=== PATIENT | male | born 1970 | race Caucasian/White ===

== ENCOUNTER 2017-12-10 09:05 | Emergency (ER) | payer OTHER ==
[~2017-12-10] VITALS: Ht 182.9 cm; Wt 83.9 kg
[~2017-12-10 09:05] MED LIST: IBUPROFEN800 MG PO; MOTRIN 600 MG600 MG PO; ULTRAM(MONOGRAP50 MG PO
--- NOTE | 2017-12-10 09:40 | ED GI/GU/ABDOMINAL COMPLAINT ---
History of Present Illness General Chief Complaint: Nausea, Vomiting, Diarrhea Stated Complaint: +NV, X 12 HRS Source: patient Exam Limitations: no limitations Allergies Coded Allergies: NO KNOWN ALLERGIES (05/15/11) Reconcile Medications Omeprazole 40 MG CAPSULE.DR José CAP PO DAILY reflux Triage Note: PT TO ED WITH C/O NAUSEA SINCE 6PM YESTERDAY AFTER EATING RIBS, VOMITED LAST NIGHT, NOT FURTHER VOMITING TODAY, DENIES DIARRHEA. HX "ULCER IN STOMACH A COUPLE OF YEARS AGO". Triage Nurses Notes Reviewed? yes Onset: Abrupt Duration: day(s): (1) Timing: recent history Quality/Severity: moderate Location: epigastric Radiation: no radiation Activities at Onset: none No Modifying Factors: none HPI: 47-year-old male comes into the emergency room for further evaluation of epigastric discomfort that began last night around 6 PM. Patient reports that he was eating some ribs. Immediately after eating felt nauseous and began to vomit. Hes had some burning upper abdominal pain. He denies any fever. He drinks about 6 beers a day. He's had some withdrawal symptoms before. He reports that since last night he's been having vomiting intermittent bleeding and spitting up mucus. Denies any other associated symptoms. (Vincent BARROW,Hernandez) Vital Signs & Intake/Output Vital Signs & Intake/Output Vital Signs Date Time Temp Pulse Resp B/P B/P Pulse O2 O2 Flow FiO2 Mean Ox Delivery Rate 12/10 1932 99.0 84 18 145/81 95 Room Air 12/10 1430 99.7 85 20 150/90 12/10 1418 99.7 85 20 150/90 98 Room Air 12/10 1230 98.6 70 20 156/86 12/10 1223 98.6 70 20 156/86 99 Room Air 12/10 1030 98.0 69 20 150/80 12 1030 98.0 69 20 150/80 97 Room Air 12/10 0909 7.9 90 18 149/94 98 Room Air Room Air (Alexa VOSS,Castro Siegel) Past History Travel History Traveled to [place] past 21 day No Medical History Any Pertinent Medical History? see below for history Neurological: NONE EENT: NONE Cardiovascular: NONE Respiratory: NONE Gastrointestinal: GERD, peptic ulcer disease Hepatic: NONE Renal: NONE Musculoskeletal: BONE DEGENERATION Psychiatric: NONE Endocrine: NONE Blood Disorders: NONE Cancer(s): NONE OPHTHALMIC PATHOLOGIST/Reproductive: NONE Surgical History Surgical History: non-contributory Psychosocial History What is your primary language Andorran Tobacco Use: Current Daily Use Daily Tobacco Use Amount/Type: => 5 Cigarettes daily ETOH Use: occasional use Illicit Drug Use: denies illicit drug use Family History Hx Contributory? No (Hernandez Robles) Review of Systems Review of Systems Constitutional: Reports: no symptoms. EENTM: Reports: no symptoms. Respiratory: Reports: no symptoms. Cardiovascular: Reports: no symptoms. GI: Reports: see HPI. Genitourinary: Reports: no symptoms. Musculoskeletal: Reports: no symptoms. Skin: Reports: no symptoms. Neurological/Psychological: Reports: no symptoms. Hematologic/Endocrine: Reports: no symptoms. Immunologic/Allergic: Reports: no symptoms. All Other Systems: Reviewed and Negative (Hernandez Robles) Physical Exam Physical Exam General Appearance: well developed/nourished, alert, awake Head: atraumatic Eyes: Bilateral: normal appearance. Ears, Nose, Throat, Mouth: hearing grossly normal, moist mucous membrane Neck: normal inspection Respiratory: no respiratory distress Gastrointestinal: soft, tenderness (epigastric) Back: normal inspection Extremities: normal range of motion Neurologic/Psych: awake, alert, oriented x 3, normal gait Core Measures ACS in differential dx? Yes Sepsis Present: No Sepsis Focused Exam Completed? No (Hernandez Robles) Progress Differential Diagnosis: AMI, biliary colic, gastritis, hepatitis, Alycia-Tayo tear, pancreatitis, peptic ulcer, PUD/GERD, SBO Plan of Care: Orders Procedure Date/time Status CIWA 12/10 1004 Active URINALYSIS 12/10 1004 Complete TROPONIN LEVEL 12/10 0939 Complete PARTIAL THROMBOPLASTIN TIME 12/10 0939 Complete PROTHROMBIN TIME 12/10 0939 Complete LIPASE 12/10 0939 Complete ETHANOL 12/10 0939 Complete COMPREHENSIVE METABOLIC PANEL 12/10 0939 Complete CBC WITHOUT DIFFERENTIAL 12/10 0939 Complete AMYLASE 12/10 0939 Complete EKG 12/10 0939 Active Laboratory Tests 12/10/17 1131: Urine Color YEL, Urine Clarity CLEAR, Urine pH 6.0, Ur Specific Lyman 1.015, Urine Protein NEG, Urine Ketones 15 H, Urine Nitrite NEG, Urine Bilirubin NEG, Urine Urobilinogen 0.2, Ur Leukocyte Esterase NEG, Ur Microscopic EXAM NOT REQUIRED, Urine Hemoglobin NEG, Urine Glucose NEG 12/10/17 1000: Anion Gap 18 H, Estimated GFR > 60, BUN/Creatinine Ratio 13.3, Glucose 88, Calcium 9.5, Total Bilirubin 1.7 H, AST 116 H, ALT 54, Alkaline Phosphatase 105, Troponin I < 0.01, Total Protein 8.4 H, Albumin 4.8, Globulin 3.6, Albumin /Globulin Ratio 1.3, Amylase 82, Lipase 118, PT 14.1 H, INR 1.29 H, APTT 34, CBC w Diff NO MAN DIFF REQ, RBC 4.54 L, MCV 96.6 H, MCH 31.6 H, MCHC 32.7 L, RDW 13.0, MPV 8.4, Gran % 77.9 H, Lymphocytes % 9.9 L, Monocytes % 11.3 H, Eosinophils % 0.5, Basophils % 0.4, Absolute Granulocytes 3.5, Absolute Lymphocytes 0.5 L, Absolute Monocytes 0.5, Absolute Eosinophils 0, Absolute Basophils 0, Serum Alcohol 31.0 Diagnostic Imaging: Viewed by Me: CT Scan. Discussed w/RAD: CT Scan. Radiology Impression: PATIENT: ASIF LUA PRESENT AGE: 47 PATIENT ACCOUNT NO: [id number] : 69 LOCATION: [facility] ORDERING PHYSICIAN: Hernandez BARROW SERVICE DATE: 12/10/17 EXAM TYPE : CAT - CT ABD & PELVIS W IV CONTRAST; CT CHEST W IV CONTRAST EXAMINATION: CT CHEST WITH IV CONTRAST CT ABDOMEN AND PELVIS WITH IV CONTRAST CLINICAL INFORMATION: Epigastric pain and difficulty swallowing. COMPARISON: None TECHNIQUE: Multidetector CT imaging examination of the chest, abdomen and pelvis was performed with intravenous administration of 95 mL Optiray 320. Axial images are displayed at 0.625 mm and 5 mm slice thickness. Coronal and sagittal reformatted images were generated at the technologist's workstation and submitted for review. DLP: 422 mGy-cm FINDINGS: CHEST - LUNGS and PLEURA: Trachea and central airways are widely patent and normal in caliber. Lungs are clear. No pulmonary interstitial infiltrate, consolidation, pleural effusion or pneumothorax. MEDIASTINUM: The heart size is normal. Mild atherosclerotic calcification of the left anterior descending coronary artery. No pericardial effusion. Thoracic aorta and pulmonary arteries are normal in caliber. Although the examination was not performed to specifically evaluate pulmonary arteries, there are no filling defects identified in the central pulmonary vessels. Small- to-moderate sized sliding-type hiatal hernia. No pneumomediastinum. Thyroid gland is unremarkable. LYMPHATICS: No pathologic sized axillary, hilar or mediastinal lymph nodes. CHEST WALL/BONES: Thoracic vertebra have normal height and alignment. Mild dextrocurvature of the thoracic spine. No aggressive osseous lesions within the thorax. ABDOMEN AND PELVIS - HEPATOBILIARY: Liver has normal size and contour. Liver parenchyma is diffusely hypodense compared to the spleen on these portal venous phase images. This suggests presence of diffuse steatosis. Gallbladder is unremarkable. No intrahepatic or extrahepatic bile duct dilatation. PANCREAS: Pancreas enhances homogeneously. No focal lesion, ductal dilatation or peripancreatic edema. SPLEEN: Unremarkable. ADRENAL GLANDS: Unremarkable. KIDNEYS, URETERS, BLADDER: Kidneys are normal in size and enhance symmetrically. No nephrolithiasis, hydronephrosis or perinephric edema. GI TRACT AND PERITONEUM: Loops of bowel are normal in caliber. No evidence of bowel obstruction or constipation. Diverticulosis of sigmoid colon without evidence of diverticulitis. The normal appendix is retrocecal in position. No ascites or pneumoperitoneum. ABDOMINAL WALL: Minimal protrusion of fat into the left inguinal canal. No acute findings in the abdominal wall. VASCULAR: Abdominal aorta is normal in caliber and the celiac trunk, SMA, GELY and renal arteries are widely patent. LYMPH NODES: Normal. PELVIC VISCERA: Prostate gland is grossly unremarkable. No pelvic free fluid. OSSEOUS STRUCTURES: There are pars interarticularis defects of L5 with grade 1 anterolisthesis of L5 on S1. 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 IMPRESSION: 1. Small-to moderate-sized sliding-type hiatal hernia. 2. Diffuse hepatic steatosis - a finding that can be seen in association with alcohol use and/or other etiologies. 3. No evidence of pancreatitis or other acute pathology in the abdomen or pelvis. 4. Sigmoid colon diverticulosis without diverticulitis. 5. 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 DICTATED BY: Ricardo Blair MD DATE/TIME DICTATED:12/10/171116 DESIGN MANAGER:ABIMBOLA DATE/TIME TRANSCRIBED:12/10/171116 CONFIDENTIAL, DO NOT COPY WITHOUT APPROPRIATE AUTHORIZATION. <Electronically signed in Other Vendor System> SIGNED BY: Ricardo Blair MD 12/10/17 8051 Initial ED EKG: normal sinus rhythm, rate (83) Comments: 12/10/2017 3:30:12 PM GI came down and evaluated the patient. They're going to set the patient up for an upper endoscopy today. dr thomas consulting. 12/10/2017 8:20:58 PM Patient does not want stay for alcohol detox. He is clinically sober. He is alert and oriented. He has a ride. He wants to leave. He has no more GI symptoms. Food impaction was seen on the endoscopy and resolved. Patient was started on a PPI. (Hernandez Robles) Comments: 12/10/2017 7:11:59 PM I have evaluated this patient personally status post endoscopy. I agree with the internet assessor's assessment and plan. (Alexa VOSS,Castro Siegel) Departure Departure Disposition: HOME OR SELF CARE Condition: Stable Clinical Impression Primary Impression: Food impaction of esophagus Secondary Impressions: ETOH abuse Referrals: Ladarius VOSS,Juliocesar Gauthier APRN (PCP/Family) Additional Instructions: Take omeprazole as prescribed. Follow-up with executive personal assistant. Return if any concerns worsening symptoms. you have declined alcohol detox at this time. you need to stop drinking alcohol. Please go over all results of today's visit with your primary care doctor. Contact your primary care doctor to let them know you were here in the emergency room. There may be nonspecific findings which may not be related to your visit today here in the emergency room but may require further evaluation and chronic monitoring by your primary care doctor. If you had a laceration today the chance of foreign body always remains. You should follow-up with your primary care doctor for recheck in 3-5 days for a wound check. If you had an x-ray done there is a chance that a fracture could have been missed on initial read and you should follow-up with your primary care doctor for repeat x-rays if symptoms persist. If your blood pressure was elevated here in the emergency room please have rechecked by [facility] primary care doctor within the next 48. If you were prescribed a narcotic here in the emergency room or any type of controlled substances you're not allowed to drive while taking this medication or operate any type of heavy machinery. Narcotics can make you feel lightheaded dizziness nausea and can cause constipation. You may need to order picker/assembler a stool softener. Thank you for choosing [facility] emergency room. Please return to the emergency room immediately if you have any other concerns worsening of symptoms. Departure Forms: Customer Survey General Discharge Information Prescriptions: Current Visit Scripts Omeprazole 1 CAP PO DAILY #30 CAP (Hernandez Robles)
[2017-12-10 10:19] LABS: ABSOLUTE BASOPHIL COUNT 0 /CUMM (0.0-0.2); ABSOLUTE EOSINOPHIL COUNT 0 /CUMM (0.0-0.7); ABSOLUTE GRANULOCYTE CT 3.5 /CUMM (1.4-6.5); ABSOLUTE LYMPH COUNT 0.5 /CUMM (1.2-3.4); ABSOLUTE MONOCYTE COUNT 0.5 /CUMM (0.10-0.60); BASOPHIL % 0.4 % (0.0-2.0); EOSINOPHIL % 0.5 % (0-5); GRANULOCYTE % 77.9 % (42.2-75.2); HEMATOCRIT 43.8 % (42-52); MEAN CORPUSCULAR HGB 31.6 PG (27.0-31.0); MEAN CORPUSCULAR HGB CONC 32.7 G/DL (33.0-37.0); MEAN CORPUSCULAR VOLUME 96.6 FL (80.0-94.0); MEAN PLATELET VOLUME 8.4 FL (7.4-10.4); PLATELET COUNT 166 /CUMM (130-400); RED BLOOD CELL CT 4.54 /CUMM (4.70-6.10); WHITE BLOOD CELL COUNT 4.6 /CUMM (4.8-10.8)
[2017-12-10 10:24] LABS: PT 14.1 SEC (9.4-12.5); PTT 34 SEC (25-37)
--- NOTE | 2017-12-10 11:31 | CT SCAN REPORT ---
EXAMINATION: CT CHEST WITH IV CONTRAST CT ABDOMEN AND PELVIS WITH IV CONTRAST CLINICAL INFORMATION: Epigastric pain and difficulty swallowing. COMPARISON: None TECHNIQUE: Multidetector CT imaging examination of the chest, abdomen and pelvis was performed with intravenous administration of 95 mL Optiray 320. Axial images are displayed at 0.625 mm and 5 mm slice thickness. Coronal and sagittal reformatted images were generated at the technologist's workstation and submitted for review. DLP: 422 mGy-cm FINDINGS: CHEST - LUNGS and PLEURA: Trachea and central airways are widely patent and normal in caliber. Lungs are clear. No pulmonary interstitial infiltrate, consolidation, pleural effusion or pneumothorax. MEDIASTINUM: The heart size is normal. Mild atherosclerotic calcification of the left anterior descending coronary artery. No pericardial effusion. Thoracic aorta and pulmonary arteries are normal in caliber. Although the examination was not performed to specifically evaluate pulmonary arteries, there are no filling defects identified in the central pulmonary vessels. [id number] sized sliding-type hiatal hernia. No pneumomediastinum. Thyroid gland is unremarkable. LYMPHATICS: No pathologic sized axillary, hilar or mediastinal lymph nodes. CHEST WALL/BONES: Thoracic vertebra have normal height and alignment. Mild dextrocurvature of the thoracic spine. No aggressive osseous lesions within the thorax. ABDOMEN AND PELVIS - HEPATOBILIARY: Liver has normal size and contour. Liver parenchyma is diffusely hypodense compared to the spleen on these portal venous phase images. This suggests presence of diffuse steatosis. Gallbladder is unremarkable. No intrahepatic or extrahepatic bile duct dilatation. PANCREAS: Pancreas enhances homogeneously. No focal lesion, ductal dilatation or peripancreatic edema. SPLEEN: Unremarkable. ADRENAL GLANDS: Unremarkable. KIDNEYS, URETERS, BLADDER: Kidneys are normal in size and enhance symmetrically. No nephrolithiasis, hydronephrosis or perinephric edema. GI TRACT AND PERITONEUM: Loops of bowel are normal in caliber. No evidence of bowel obstruction or constipation. Diverticulosis of sigmoid colon without evidence of diverticulitis. The normal appendix is retrocecal in position. No ascites or pneumoperitoneum. ABDOMINAL WALL: Minimal protrusion of fat into the left inguinal canal. No acute findings in the abdominal wall. VASCULAR: Abdominal aorta is normal in caliber and the celiac trunk, SMA, GELY and renal arteries are widely patent. LYMPH NODES: Normal. PELVIC VISCERA: Prostate gland is grossly unremarkable. No pelvic free fluid. OSSEOUS STRUCTURES: There are pars interarticularis defects of L5 with grade 1 anterolisthesis of L5 on S1. 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 IMPRESSION: 1. Small-to moderate-sized sliding-type hiatal hernia. 2. Diffuse hepatic steatosis - a finding that can be seen in association with alcohol use and/or other etiologies. 3. No evidence of pancreatitis or other acute pathology in the abdomen or pelvis. 4. Sigmoid colon diverticulosis without diverticulitis. 5. 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
--- NOTE | 2017-12-10 15:06 | Cons- Gastroenterology ---
General Information and HPI Consulting Request Date of Consult: 12/10/17 Requested By: DREW VALDERRAMA Reason for Consult: I was called a few minutes ago by the [facility] to assess difficulty in swallowing/odynophagia, in an alcoholic Source of Information: patient, old records Exam Limitations: clinical condition, poor historian, some of records in [place] History of Present Illness: 47 y/o male, DJD, non-HTN, non-DM, EtOH abuse x years (> 7 beers & 3 shots daily ), with hx +DTs & withdrawal, fatty liver, mild cigarette & cigar smoker, denies illicit drugs or IVDA. He is f/b Juliocesar Baxter for primary care. He was in [facility] [place] yesterday 12/09/17 & ate a hamburger uneventfully in the afternoon. This was followed 5:30 p.m. by eating ribs on the bone with BBQ sauce. He ate some of the ribs, followed by a "burning sensation" in the mid-chest and regurgitation. There was no dysphagia, but rather odynophagia. There was no pleuritic pain or hemoptysis. He denied any fevers or chills. This was followed by nausea & vomiting, with bilious contents. He also had dry heaves. There was no hematemesis or melena. He denied any early satiety. He was not taking any aspirin or NSAIDs. He denied any recent Prednisone or antibiotic use. He is right-handed. He denied any history of head & neck CA or head & neck RT. He denied any history of thyroid disease. He denied any change in his voice or any nasal regurgitation of food or liquids. He denied any previous surgery. He came to the [facility] and was felt to be an early withdrawal, although he was A & O 3. His max CIWA was 12. In the [facility], he was hemodynamically stable, but mildly HTN, with Tm 99.7 & O2 sat RA 98%. He tried a sip of water at 3 PM in the ER, but then regurgitated it. He last ate solids at the time of the ribs on 12/09/17 at 5:30 p.m. He notes occasional sx GERD, for which he takes antacids as needed. He has never been on long-term PPI or H2B. He denied ever having had a previous EGD. He claimed he had a similar event 2-3 years ago after eating shellfish, when he went to the [facility] ER in [place], [place]. It sounded like he regurgitated the food back up then, without the need for EGD. Although he never had an EGD, he claimed someone once told him he had an "ulcer". He is not sure how they made this diagnosis. There is no family history of GI CA, GI disease, or inherited liver disease. The patient denied any history of alcohol-related seizures. He denied any jaundice, dark urine, light stools, pruritus, increased abdominal girth, peripheral edema, confusion, symptoms of UTI or URI, weight loss, or change in appetite. Of note, the patient remotely had a 10/06/06: baseline & only colonoscopy to the cecum by Dr. Smith for BRBPR, revealing erythema, edema, and friability in a continuous, circumferential pattern to 18 cm. He was unable to enter the TI. Random bxs of the cecum, right colon, & transverse colon- melanosis coli. Sigmoid bxs- congestion. Rectal bxs- moderate to marked chronic proctitis with moderate acute activity, no dysplasia or CA. Bxs were consistent with ulcerative proctitis. The patient claimed he was never treated for this and was not compliant with follow-up. He had no lower GI symptoms, and specifically denied any diarrhea, constipation, obstipation, tenesmus, or rectal bleeding. He denied any rashes. Aside from chronic DJD, he had no acute arthralgias. At about 3:15 PM on 12/10/17, I gave the patient another sip of water to drink, which he drank, then regurgitated back up, after about 30 seconds. Imaging studies in the ER did not show any obstruction. 12/10/17: CT ABD & PELVIS W IV CONTRAST; CT CHEST W IV CONTRAST- IMPRESSION: 1. Small-to moderate-sized sliding-type hiatal hernia. No pneumomediastinum or PNA. 2. Diffuse hepatic steatosis - a finding that can be seen in association with alcohol use and/or other etiologies. No focal hepatic defect. Normal GB. No dilated ducts. 3. No evidence of pancreatitis or other acute pathology in the abdomen or pelvis. 4. Sigmoid colon diverticulosis without diverticulitis. 5. 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 12/10/17: EKG- NSR @ 83, LAHB, PRWP. 12/10/17: 1000: WBC 4.6, H/H 14.3/43.8, MCV 96.6, RDW 13.0, PLT 166, PT 14.1, INR 1.29, PTT 34, glucose 88, BUN/Cr 8/0.6, GFR > 60, Na 141, K 4.2, HCO3 26, AG 18, nl amylase 82, nl lipase 118, Ca 9.5, albumin 4.8, globulin 3.6, TBil 1.7 (w /o fracs), alk phos 105, AST 16, ALT 54, troponin < 0.01, [EtOH] 31. 12/10/17: U/A- clear yellow, 1.015, 6.0, 15+ ketone; otherwise, micro-neg; neg nitrite, neg esterase. *No Utox was sent. Allergies/Medications Allergies: Coded Allergies: NO KNOWN ALLERGIES (05/15/11) Home Med List: No Known Home Medications Current Medications: Current Medications Sig/Nhi Start time Last Medication Dose Route Stop Time Status Admin Lorazepam 0 .STK-MED ONE 12/10 1516 DC .ROUTE Lorazepam 2 MG ONE ONE 12/10 1515 DC 05/ IV 12/10 1516 1514 Ondansetron HCl 0 .STK-MED ONE 12/10 0959 DC .ROUTE Ondansetron HCl 4 MG ONCE ONE 12/10 0945 DC / IV 12/10 0946 0959 Pantoprazole Sodium 40 MG ONCE ONE 12/10 1530 DC IV 12/10 1531 Pantoprazole Sodium 0 .STK-MED ONE 12/10 1000 DC IV Pantoprazole Sodium 40 MG ONCE ONE 12/10 0945 DC 12/10 IV 12/10 0946 0959 Sodium Chloride 1,000 ML BOLUS ONE 12/10 0945 DC 12/10 IV 12/10 1044 0959 Past History Travel History Traveled to [place] past 21 day No Medical History Blood Transfusion Hx: No Neurological: NONE EENT: NONE Cardiovascular: NONE Respiratory: NONE Gastrointestinal: GERD, hiatal hernia, peptic ulcer disease (allegedly- no previous EGD), 10/06/06: Colonoscopy- ulcerative proctitis, not c/w f/u Hepatic: EtOH abuse, fatty liver Renal: NONE Musculoskeletal: degen joint disease, BONE DEGENERATION Psychiatric: alcohol dependence Endocrine: NONE Blood Disorders: NONE Cancer(s): NONE KILN WORKER/Reproductive: NONE Surgical History Surgical History: non-contributory Family History Relations & Conditions If Any: FATHER (Unknown). MOTHER ([employer]). Age 70. Psychosocial History Where Do You Live? Home Who Do You Live With? self Services at Home: None Primary Language: Serbian Smoking Status: Current Everyday Smoker ETOH Use: alcoholic Illicit Drug Use: denies illicit drug use Living Will? no Power of Behavioral Health Technician/HCP? no Other Social History: Single. No kids. Lives alone. 08/04 ppd cigarettes x "few yrs" & cigars. Heavy EtOH (> 7 beers & 3 shots daily). Denied illicit drugs or IVDA. "Disabled" from DJD right hip. Functional Ability ADLs Independent: dressing, eating, toileting, bathing. Ambulation: independent IADLs Independent: shopping, housework, finances, food prep, telephone, transportation , medication admin. Employment History Employment: Disability Review of Systems Review of Systems: Full 14 point review of systems otherwise noncontributory, and as above. Review of Systems Constitutional: Denies: chills, diaphoresis, fever, malaise, weakness, unexplained weight loss. EENTM: Denies: blurred vision, double vision, visual changes, eye pain, eye drainage, eye tearing, icterus, ear discharge, ear pain, ear redness, hearing changes, nasal congestion, epistaxis, nasal pain, throat pain, throat swelling, mouth pain, tooth pain. Cardiovascular: Denies: chest pain, edema, orthopena, palpitations, peripheral edema, syncope. Respiratory: Denies: cough, hemoptysis, orthopnea, short of breath, sputum production, stridor, wheezing. GI: Denies: no symptoms (regurg/GERD/odynophagia), abdominal pain, bloating, constipation, diarrhea, distention, bowel incontinence, melena, nausea, bloody stool, changes in stool, vomiting, steatorrhea. Genitourinary: Denies: discharge, dysuria, frequency, hematuria, hesitation, nocturia, pain, urgency. Musculoskeletal: Reports: joint pain (chronic right hip). Denies: back pain, gout, joint swelling, muscle pain, muscle stiffness, neck pain. Skin: Denies: cysts, change in skin color, change in hair/nails, dryness, erythema, jaundice, lesions, lymphangitis, lumps, moles, rash. Neurological/Psychological: Denies: anxiety, ataxia, cognitive dysfunction, confusion, depressed, dementia, emotional problems, headache, numbness, paresthesia, pre-existing deficit, petit mal seizures, tingling, tremors, tonic-clonic seizures, unable to move lower ext , unable to move upper ext, weakness. Hematologic/Endocrine: Denies: bruising, bleeding, polyuria, polydipsia. Immunologic/Allergic: Denies: splenectomy, HIV/AIDS, lymphadenopathy. All Other Systems: Reviewed and Negative Exam & Diagnostic Data Vital Signs and I&O Vital Signs Date Time Temp Pulse Resp B/P B/P Pulse O2 O2 Flow FiO2 Mean Ox Delivery Rate 12/10 1430 99.7 85 20 150/90 12/10 1418 99.7 85 20 150/90 98 Room Air 12/10 1230 98.6 70 20 156/86 12/10 1223 98.6 70 20 156/86 99 Room Air 12/10 1030 98.0 69 20 150/80 12/10 1030 98.0 69 20 150/80 97 Room Air 12/10 0909 7.9 90 18 149/94 98 Room Air Room Air Intake & Output 12/10 1600 12/10 0400 12/09 1600 12/09 0400 12/08 1600 12/08 0400 Intake Total 1000 Output Total Balance 1000 Intake, IV 1000 Patient 185 lb Weight Weight Reported by Patient Measurement Method Physical Exam: Well-developed, well-nourished male, in no apparent distress, in early withdrawal. Sclera anicteric. Conjunctiva pink. Oropharynx clear. Poor dentition. No oral thrush. No aphthous ulcers. No stridor. There is no adenopathy, thyromegaly, or JVD. No peripheral stigmata of inflammatory bowel disease or chronic liver disease on exam. No spiders on the anterior chest wall. No gynecomastia. No CVA tenderness. No spine tenderness. No CWT. No head & neck or CW crepitus. Lungs: clear to A&P. No wheezing, rales, or rhonchi. Heart exam: regular rate rhythm S1 and S2, without any murmur. Abdominal exam: normal bowel sounds, soft belly, nontender, without guarding or rebound. No mass. No organomegaly. Negative Snyder sign. No fluid shift. No pulsatile mass. No epigastric bruit. Digital rectal exam: deferred by patient. Extremities: without C, C, or E. No palpable cords. No rash. Moderate DJD. Distal pulses 2+ bilaterally. DTRs 2+ bilaterally. No palmar erythema. No Dupuytren's contractures. Alert and oriented x 3. Motor 5/5 B/L. Right handed. CN II-XII intact. Mild tremor. No asterixis. Results Pertinent Lab Results: Laboratory Tests 12/10 12/10 1131 1000 Chemistry Sodium (137 - 145 mmol/L) 141 Potassium (3.5 - 5.1 mmol/L) 4.2 Chloride (98 - 107 mmol/L) 96 L Carbon Dioxide (22 - 30 mmol/L) 26 Anion Gap (5 - 16) 18 H BUN (9 - 20 mg/dL) 8 L Creatinine (0.7 - 1.2 mg/dL) 0.6 L Estimated GFR (>60 ml/min) > 60 BUN/Creatinine Ratio (7 - 25 %) 13.3 Glucose (65 - 99 mg/dL) 88 Calcium (8.4 - 10.2 mg/dL) 9.5 Total Bilirubin (0.2 - 1.3 mg/dL) 1.7 H AST (17 - 59 U/L) 116 H ALT (21 - 72 U/L) 54 Alkaline Phosphatase (< 127 U/L) 105 Troponin I (<0.11 ng/ml) < 0.01 Total Protein (6.3 - 8.2 g/dL) 8.4 H Albumin (3.5 - 5.0 g/dL) 4.8 Globulin (1.9 - 4.2 gm/dL) 3.6 Albumin/Globulin Ratio (1.1 - 2.2 %) 1.3 Amylase (30 - 110 U/L) 82 Lipase (23 - 300 U/L) 118 Coagulation PT (9.4 - 12.5 SEC) 14.1 H INR (0.90 - 1.17) 1.29 H APTT (25 - 37 SEC) 34 Hematology CBC w Diff NO MAN DIFF REQ WBC (4.8 - 10.8 /CUMM) 4.6 L RBC (4.70 - 6.10 /CUMM) 4.54 L Hgb (14.0 - 18.0 G/DL) 14.3 Hct (42 - 52 %) 43.8 MCV (80.0 - 94.0 FL) 96.6 H MCH (27.0 - 31.0 PG) 31.6 H MCHC (33.0 - 37.0 G/DL) 32.7 L RDW (11.5 - 14.5 %) 13.0 Plt Count (130 - 400 /CUMM) 166 MPV (7.4 - 10.4 FL) 8.4 Gran % (42.2 - 75.2 %) 77.9 H Lymphocytes % (20.5 - 51.1 %) 9.9 L Monocytes % (1.7 - 9.3 %) 11.3 H Eosinophils % (0 - 5 %) 0.5 Basophils % (0.0 - 2.0 %) 0.4 Absolute Granulocytes (1.4 - 6.5 /CUMM) 3.5 Absolute Lymphocytes (1.2 - 3.4 /CUMM) 0.5 L Absolute Monocytes (0.10 - 0.60 /CUMM) 0.5 Absolute Eosinophils (0.0 - 0.7 /CUMM) 0 Absolute Basophils (0.0 - 0.2 /CUMM) 0 Toxicology Serum Alcohol (<10 MG/DL) 31.0 Urines Urine Color (YEL,AMB,STR) YEL Urine Clarity (CLEAR) CLEAR Urine pH (5.0 - 8.0) 6.0 Ur Specific [place] (1.001 - 1.035) 1.015 Urine Protein (NEG,<30 MG/DL) NEG Urine Ketones (NEG) 15 H Urine Nitrite (NEG) NEG Urine Bilirubin (NEG) NEG Urine Urobilinogen (0.1 - 1.0 EU/dl) 0.2 Ur Leukocyte Esterase (NEG) NEG Ur Microscopic EXAM NOT REQUIRED Urine Hemoglobin (NEG) NEG Urine Glucose (N MG/DL) NEG Imaging/Other Studies: 12/10/17: CT ABD & PELVIS W IV CONTRAST; CT CHEST W IV CONTRAST- IMPRESSION: 1. Small-to moderate-sized sliding-type hiatal hernia. No pneumomediastinum or PNA. 2. Diffuse hepatic steatosis - a finding that can be seen in association with alcohol use and/or other etiologies. No focal hepatic defect. Normal GB. No dilated ducts. 3. No evidence of pancreatitis or other acute pathology in the abdomen or pelvis. 4. Sigmoid colon diverticulosis without diverticulitis. 5. 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 12/10/17: EKG- NSR @ 83, LAHB, PRWP. Assessment/Plan Assessment/Recommendations: 47 y/o male, DJD, non-HTN, non-DM, EtOH abuse x years (> 7 beers & 3 shots daily ), with hx +DTs & withdrawal, fatty liver, mild cigarette & cigar smoker, denies illicit drugs or IVDA. He is f/b Juliocesar Baxter for primary care. He was in [facility] [place] yesterday 12/09/17 & ate a hamburger uneventfully in the afternoon. This was followed 5:30 p.m. by eating ribs on the bone with BBQ sauce. He ate some of the ribs, followed by a "burning sensation" in the mid-chest and regurgitation. There was no dysphagia, but rather odynophagia. There was no pleuritic pain or hemoptysis. He denied any fevers or chills. This was followed by nausea & vomiting, with bilious contents. He also had dry heaves. There was no hematemesis or melena. He denied any early satiety. He was not taking any aspirin or NSAIDs. He denied any recent Prednisone or antibiotic use. He is right-handed. He denied any history of head & neck CA or head & neck RT. He denied any history of thyroid disease. He denied any change in his voice or any nasal regurgitation of food or liquids. He denied any previous surgery. He came to the [facility] and was felt to be an early withdrawal, although he was A & O 3. His max CIWA was 12. In the [facility] ER, he was hemodynamically stable, but mildly HTN, with Tm 99.7 & O2 sat RA 98%. He tried a sip of water at 3 PM in the ER, but then regurgitated it. He last ate solids at the time of the ribs on 12/09/17 at 5:30 p.m. He notes occasional sx GERD, for which he takes antacids as needed. He has never been on long-term PPI or H2B. He denied ever having had a previous EGD. He claimed he had a similar event 2-3 years ago after eating shellfish, when he went to the [facility] ER in [place], [place]. It sounded like he regurgitated the food back up then, without the need for EGD. Although he never had an EGD, he claimed someone once told him he had an "ulcer". He is not sure how they made this diagnosis. There is no family history of GI CA, GI disease, or inherited liver disease. The patient denied any history of alcohol-related seizures. He denied any jaundice, dark urine, light stools, pruritus, increased abdominal girth, peripheral edema, confusion, symptoms of UTI or URI, weight loss, or change in appetite. Of note, the patient remotely had a 10/06/06: baseline & only colonoscopy to the cecum by Dr. Smith for BRBPR, revealing erythema, edema, and friability in a continuous, circumferential pattern to 18 cm. He was unable to enter the TI. Random bxs of the cecum, right colon, & transverse colon- melanosis coli. Sigmoid bxs- congestion. Rectal bxs- moderate to marked chronic proctitis with moderate acute activity, no dysplasia or CA. Bxs were consistent with ulcerative proctitis. The patient claimed he was never treated for this and was not compliant with follow-up. He had no lower GI symptoms, and specifically denied any diarrhea, constipation, obstipation, tenesmus, or rectal bleeding. He denied any rashes. Aside from chronic DJD, he had no acute arthralgias. At about 3:15 PM on 12/10/17, I gave the patient another sip of water to drink, which he drank, then regurgitated back up, after about 30 seconds. Imaging studies in the ER did not show any obstruction. 12/10/17: CT ABD & PELVIS W IV CONTRAST; CT CHEST W IV CONTRAST- IMPRESSION: 1. Small-to moderate-sized sliding-type hiatal hernia. No pneumomediastinum or PNA. 2. Diffuse hepatic steatosis - a finding that can be seen in association with alcohol use and/or other etiologies. No focal hepatic defect. Normal GB. No dilated ducts. 3. No evidence of pancreatitis or other acute pathology in the abdomen or pelvis. 4. Sigmoid colon diverticulosis without diverticulitis. 5. 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 12/10/17: EKG- NSR @ 83, LAHB, PRWP. 12/10/17: 1000: WBC 4.6, H/H 14.3/43.8, MCV 96.6, RDW 13.0, PLT 166, PT 14.1, INR 1.29, PTT 34, glucose 88, BUN/Cr 8/0.6, GFR > 60, Na 141, K 4.2, HCO3 26, AG 18, nl amylase 82, nl lipase 118, Ca 9.5, albumin 4.8, globulin 3.6, TBil 1.7 (w /o fracs), alk phos 105, AST 16, ALT 54, troponin < 0.01, [EtOH] 31. 12/10/17: U/A- clear yellow, 1.015, 6.0, 15+ ketone; otherwise, micro-neg; neg nitrite, neg esterase. *No Utox was sent. *As of 12/10/17, clinically, the patient had odynophagia and regurgitation, with mild GERD. He was unable to keep down liquids. The above reportedly happened shortly after eating ribs on the bone at 5:30 PM yesterday evening, on 12/09/17. There was no overt GI bleeding. The patient had no constitutional symptoms, but may have started to go into early alcohol withdrawal, which he reportedly had done in the past. He was A & O x 3, with max CIWA 12. CT CAP with IV cont in the ER did not show any acute obstructive process, nor any pneumomediastinum or PNA. He did have a small to moderate sized sliding hiatal hernia, along with fatty liver, sigmoid diverticulosis coli without diverticulitis, & DJD. Rule out mucosal abrasion of the esophagus from foreign body. Doubt esophageal candidiasis. Rule out esophageal HSV or CMV. Rule out necrotizing esophagitis. Rule out EOE. The history was not classic for a stricture, lesion, or dysmotility. It is possible his moderate-sized hiatal hernia could intermittently be obstructing, but this is less likely. The ER was requesting EGD in order to clear the patient for potential discharge. There is the possibility that he may have to be admitted as an inpatient, if his CIWA rises. The patient was made aware that he was not compliant with follow for treatment of his ulcerative proctitis, based on the 10/06/06 biopsies obtained via colonoscopy by Dr. Smith. He had no LGI symptoms. Additionally, he was informed that his fatty liver most likely was related to his alcohol abuse. *SUGGEST- NPO for now. IV Protonix 40 mg now please. IV Zofran. IVF. Ativan per ER. Aspiration precautions. Antireflux measures. Informed consent for EGD was obtained from the patient after careful explanation of the risks and benefits, including the potential need for intubation to protect his airway. Serial CIWA, per ER. The patient was advised to stop cigarettes & EtOH. In addition to stopping EtOH, additional risk factor modification for fatty liver includes strict control of BP, lipids, glucose, etc & will defer to PMD for this. Vitamin E 800 IU po daily may be benficial. Further recommendations to follow, post EGD. Assuming the esophagus is stable for potential D/C, a decision to admit the patient for EtOH detox will be made by the ER. The patient was given my office number for follow-up of his esophageal issues, fatty liver, and remote history of ulcerative proctitis, which he had been delinquent with. Problem List: 1. Odynophagia 2. Regurgitation 3. GERD (gastroesophageal reflux disease) 4. Hiatal hernia 5. Alcoholic hepatitis 6. Fatty liver 7. Diverticulosis of colon 8. Ulcerative proctitis Copies To: Juliocesar Baxter APRN Consult Acknowledgment - Thank you for your consult request.
--- NOTE | 2017-12-10 17:59 | Proc Note Endoscopy ---
Endoscopy Procedure Medical History: unchanged Mental Status: alert/oriented Heart/Lung Eval Prior to Sedation: within normal limits Candidate for Sedation? Yes Procedure Date: 12/10/17 Procedure Type: EGD with foreign body removal Aerospace Physiological Technician: DEEPIKA CLARK MD ASA Classification: III (III-E) Indications: INDX: (*Please refer to my GI consult from earlier on 12/10/17). 47 y/o male, odynophagia & regurgitation post eating ribs 5:30 p.m. on 12/09/17, without definite dysphagia. The patient was acutely unable to completely clear his secretions, when trying to drink water. 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 Smith, not compliant with follow-up. He denied having any previous EGD. He claimed he had a similar situation approximately 2-3 years ago,after eating seafood, requiring a trip to [facility] ER in [place], [place], when he spontaneously regurgitated the food. There is no FHx GI Ca, GI disease, or inherited liver disease. 12/10/17: CT ABD & PELVIS W IV CONTRAST; CT CHEST W IV CONTRAST- IMPRESSION: 1. Small-to moderate-sized sliding-type hiatal hernia. No pneumomediastinum or PNA. 2. Diffuse hepatic steatosis - a finding that can be seen in association with alcohol use and/or other etiologies. No focal hepatic defect. Normal GB. No dilated ducts. 3. No evidence of pancreatitis or other acute pathology in the abdomen or pelvis. 4. Sigmoid colon diverticulosis without diverticulitis. 5. 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 12/10/17: EKG- NSR @ 83, LAHB, PRWP. 12/10/17: 1000: WBC 4.6, H/H 14.3/43.8, MCV 96.6, RDW 13.0, PLT 166, PT 14.1, INR 1.29, PTT 34, glucose 88, BUN/Cr 8/0.6, GFR > 60, Na 141, K 4.2, HCO3 26, AG 18, nl amylase 82, nl lipase 118, Ca 9.5, albumin 4.8, globulin 3.6, TBil 1.7 (w /o fracs), alk phos 105, AST 16, ALT 54, troponin < 0.01, [EtOH] 31. 12/10/17: U/A- clear yellow, 1.015, 6.0, 15+ ketone; otherwise, micro-neg; neg nitrite, neg esterase. *No Utox was sent. Instrument: diagnostic gastroscope Meds Received: MAC Patient's Tolerance: good Complications: none Extent Reached: D3 Procedure: Baseline upper endoscopy to the third portion of the duodenum, with foreign body removal, was performed with the Olympus high definition videoendoscope, after obtaining informed consent from the patient, with the volunteer patient representative and pulse oximeter, with the assistance of Dr. Mcghee, of [facility]. The patient's dentition was poor preoperatively. A mouthpiece was placed in the usual fashion to protect the patient's teeth. The patient was placed in the left lateral decubitus position and sedated by [facility]. At this point , the endoscope was advanced from the mouth into the esophagus, using direct visualization technique. The vocal cords appeared normal. The proximal esophageal mucosa appeared normal. There were no esophageal rings, webs, lesions, strictures, or ulcers. There was no monilia or vesicles. There was no esophageal ribbing. Upon reaching 35 cm, a well-.circumscribed 1.5 cm food bolus (meat by history), was seen impacted in the distal esophagus. This was retrieved completely in an antegrade fashion through the mouth, with the use of the Blair net, requiring the removal of the entire endoscope. After the food bolus was removed, the endoscope was then reinserted under direct visualization, to complete the endoscopy. The Z line, which was initially obscured by the food bolus, was well demarcated at 35 cm. Aside from some local irritation in this region as expected, after the food bolus impaction, no significant esophageal inflammation was seen. There were no ectopic islands, nor gross Vaughan's esophagus. In view of the recent food impaction, no esophageal biopsies were obtained. There was a moderately sized 5 cm sliding hiatal hernia pouch, from 35 -40 cm. There were no Minh erosions. There were no esophageal or gastric varices, nor any Alycia Samaniego tear. The starks of the stomach distended normally with air insufflation. Direct and retroflexed views of the stomach were performed. There was nothing endoscopically to suggest gastroparesis or portal gastropathy. The mucosa of the gastric cardia, fundus, lesser curvature, incisura, & body appeared normal, without any gastric ulcers or gastric lesions. The gastric antrum was normal, except for some minimal prepyloric erythema. Again, in view of the recent food impaction, biopsies were deferred. The pylorus was patent, without any gastric outlet obstruction or channel ulcer. The duodenal bulb showed some erythema and superficial erosions, consistent with erosive duodenitis. The mucosa of the duodenal sweep & third portion of the duodenum were normal, without any duodenal ulcers, distal ulcerations, or angiodysplasias. I was not able to see the ampulla with the direct-viewing scope. The folds of the second & third portions of the duodenum were normal in caliber, without any flattening, nodularity, scalloping, or mosaic pattern. No active upper GI bleeding was seen. Documenting photographs were obtained and placed inside the patient's chart in the [facility]. The patient tolerated the procedure well. He had relief postoperatively, after the food bolus was removed & was able to swallow. Impression: 1. Food impaction (meat by history), removed from the distal esophagus at 35 cm /Z line, with the Blair net. Biopsies were deferred, in view of the acute food impaction. 2. Moderate sized 5 cm sliding hiatal hernia pouch, from 35-40 cm. 3. Minimal prepyloric antral erythema. 4. Erosive duodenitis in the bulb, without DU. Recommendations: Feed patient as tolerated. Aspiration precautions. Antireflux measures. * Advise PPI daily for now (i.e.- Protonix 40 mg po Q a.m., 1/2 hour before breakfast). Zofran as needed. D/C cigarettes & EtOH. Ativan as per ER, with serial CIWA. Thiamine, folate, MVI. In addition to stopping EtOH, additional risk factor modification for fatty liver includes strict control of BP, lipids, glucose, etc & will defer to PMD for this. Vitamin E 800 IU po daily may be beneficial. The patient is stable for potential D/C from an esophageal perspective. However, I will defer to the ER as to whether the patient has to be admitted for EtOH detox. The patient was given my office number for follow-up of his esophageal issues, fatty liver, and remote history of ulcerative proctitis, which he had been delinquent with. *I advised an outpatient barium swallow, to be followed by a repeat upper endoscopy with biopsies (possibly with fluoro, depending on the BS results), as well as a colonoscopy, regarding the remote history of 10/06/06: ulcerative proctitis. The patient had not been compliant with follow-up for the latter. *Additionally, would advise getting a stool Ag for H. pylori, in view of the prepyloric inflammation & erosive duodenitis in the duodenal bulb. *The patient has my office number and I gave him a printed copy of the EGD report. The above findings were communicated with PUSHPA Barrera, in the [facility], postoperatively. Further GI follow-up can be on an outpatient basis. CC: Juliocesar Baxter APRN
[2017-12-10] MEDS ORDERED: OMEPRAZOLE40 M1 PO (18:53)
[2017-12-10 19:32] VITALS: BP 145/81
== END 2017-12-10 19:35 ==
LOC: ERH 09:05
PROVIDERS: Physician Assistant Medical
DX: T18.128A Food in esophagus causing other injury, initial encounter (principal); F10.10 Alcohol abuse, uncomplicated; K44.9 Diaphragmatic hernia without obstruction or gangrene; K29.80 Duodenitis without bleeding; K76.0 Fatty (change of) liver, not elsewhere classified; K57.30 Diverticulosis of large intestine without perforation or abscess without bleeding; M16.11 Unilateral primary osteoarthritis, right hip; D48.0 Neoplasm of uncertain behavior of bone and articular cartilage; F17.200 Nicotine dependence, unspecified, uncomplicated
CPT/HCPCS: 74177; 81003; 93005; 93010; 96361; 96374; 96375; 96376; G0480; J2405